=== PATIENT | female | born 2005 | race Two or more races ===

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

== ENCOUNTER 2023-08-02 16:46 | Emergency (ER) | payer BC, MEDICAID ==
[~2023-08-02] VITALS: Ht 154.9 cm; Wt 54.9 kg
[2023-08-02] MEDS ORDERED: IV NORMAL SALINE 1000 ML BAG IV ONE (17:45)
[2023-08-02 18:21] LABS: BASOPHILS % (AUTO) 0.5 % (0.0-2.0); EOSINOPHILS # (AUTO) 0.1 K/uL (0.0-0.7); EOSINOPHILS % (AUTO) 0.8 % (0.0-7.0); HEMATOCRIT 38.8 % (31.2-41.9); HEMOGLOBIN 13.2 g/dL (10.9-14.3); LYMPHOCYTES # (AUTO) 2.5 K/uL (0.8-4.8); LYMPHOCYTES % (AUTO) 34.8 % (20.5-74.5); MEAN CORPUSCULAR HEMOGLOBIN 29.6 uug (24.7-32.8); MEAN CORPUSCULAR HGB CONC 34 g/dL (32.3-35.6); MEAN CORPUSCULAR VOLUME 87.1 fL (75.5-95.3); MONOCYTES # (AUTO) 0.7 K/uL (0.1-1.30); MONOCYTES % (AUTO) 9.7 % (0-11); NEUTROPHILS # (AUTO) 3.9 K/uL (1.8-8.9); NEUTROPHILS % (AUTO) 54.2 % (31.5-64.5); PLATELET COUNT (AUTO) 248 K/uL (179-408); RED BLOOD CELL COUNT(AUTO) 4.46 MIL/uL (3.63-4.92); RED CELL DISTRIBUTION WIDTH 12.5 % (12.3-17.7); WHITE BLOOD COUNT (AUTO) 7.2 K/uL (3.8-11.8)
[2023-08-02 18:24] LABS: DIFFERENTIAL COMMENT 1
[2023-08-02] MEDS ORDERED: AMOX-430 PO (18:30)
[2023-08-02 18:31] LABS: CALCIUM 9.6 mg/dL (8.5-10.1); CARBON DIOXIDE 31 mmol/L (21-32); CHLORIDE 102 mmol/L (98-107); CREATININE 0.7 mg/dL (0.6-1.3); GLUCOSE 86 mg/dL (74-106); POTASSIUM 3.4 mmol/L (3.5-5.1); SODIUM SERUM 140 mmol/L (136-145); UREA NITROGEN, BLOOD 6 mg/dL (7-18)
[2023-08-02 18:38] LABS: PREGNANCY TEST SERUM QUAN < 1 miul/L (0-6)
[2023-08-02 18:45] LABS: ALANINE AMINOTRANSFERASE 22 U/L (14-59); ALBUMIN 3.3 g/dL (3.4-5.0); ALKALINE PHOSPHATASE 50 U/L (50-136); ASPARTATE AMINOTRANSFERASE 22 U/L (15-37); BILIRUBIN,DIRECT < 0.1 mg/dL (0.0-0.2); BILIRUBIN,TOTAL 0.3 mg/dL (0.2-1.0); LIPASE 297 U/L (73-393); TOTAL PROTEIN, SERUM 7.5 g/dL (6.4-8.2)
[2023-08-02] MEDS ORDERED: POTASSIUM CHLORIDE 20 MEQ TAB.PRT.SR PO ONE (20:15)
[2023-08-02 20:27] LABS: *BILIRUBIN,URIN NEGATIVE (NEGATIVE); *BLOOD, URINE NEGATIVE (NEGATIVE); *CLARITY,URINE CLEAR (CLEAR); *COLOR,URINE YELLOW (YELLOW); *KETONES,URINE NEGATIVE (NEGATIVE); *PROTEIN,URINE NEGATIVE (NEGATIVE); *UROBILINOGEN,URINE 0.2 E.U./dl (NORMAL); LEUKOCYTE ESTERASE ,URINE NEGATIVE (NEGATIVE); NITRITE, URINE NEGATIVE (NEGATIVE); PH,URINE 7.5 (5.0-8.0); UGLUCOSE NEGATIVE (NEGATIVE)
[2023-08-02] MEDS ORDERED: KETOROLAC TROMETHAMINE 15 MG INJ IVP ONE (20:45)
[2023-08-02] MEDS ORDERED: POTASSIUM CHLORIDE 20 MEQ TAB.PRT.SR ONE (21:08)
[2023-08-02] MEDS ORDERED: KETOROLAC TROMETHAMINE 15 MG INJ ONE (21:09)
[2023-08-03 00:29] VITALS: BP 123/71; TEMP 98.9; O2SAT 99
== END 2023-08-02 21:20 | disposition home or self-care (01) ==
LOC: ER 16:50
DX: A04.9 Bacterial intestinal infection, unspecified (principal); R10.2 Pelvic and perineal pain; K66.1 Hemoperitoneum; Z79.2 Long term (current) use of antibiotics
CPT/HCPCS: 99285; 74176; 96374; 96361; 80076; 80048; 81003; 83690; 85025; 84702; 36415; J1885; J7040

== ENCOUNTER 2024-08-25 19:06 | Emergency (ER) | payer BC ==
[~2024-08-25] VITALS: Ht 154.9 cm; Wt 56.2 kg
[~2024-08-25 19:06] MED LIST: AMOX-430 PO
[2024-08-25] MEDS ORDERED: HYDR25SU13 RC (21:04)
[2024-08-25] MEDS ORDERED: NITR30OI6 RC (21:04)
[2024-08-25 21:15] VITALS: BP 113/72; TEMP 98; O2SAT 98
== END 2024-08-25 21:13 | disposition home or self-care (01) ==
LOC: ER 19:06
DX: K60.2 Anal fissure, unspecified (principal); Z79.899 Other long term (current) drug therapy
CPT/HCPCS: A4606; A4663